=== PATIENT | female | born 1990 | race Caucasian/White ===

== ENCOUNTER → 2018-04-09 08:58 | Outpatient (CLI) | payer SELFPAY ==
[2018-04-09 11:33] LABS: Progesterone Level 4.41 ng/mL (See Comment)
[2018-04-09 11:34] LABS: Prolactin 22.3 ng/mL; Thyroid Stim Hormone (TSH) 1.73 uIU/mL (0.358-3.74)
== END ==
PROVIDERS: Visit Provider Obstetrics & Gynecology
DX: N97.9 Female infertility, unspecified (principal)
CPT/HCPCS: 36415; 84144; 84146; 84443